=== PATIENT | male | born 1995 | race Caucasian/White ===

== ENCOUNTER 2016-10-17 21:17 | Emergency (ER) | payer BC ==
[~2016-10-17] VITALS: Ht 175.3 cm; Wt 71.7 kg
[2016-10-17 21:17] VITALS: BP 135/76
[2016-10-17] MEDS ORDERED: CEPHALEXIN MONOHYDRATE 500 MG CAPSULE PO ONE ×2 (22:13→22:30)
[2016-10-17] MEDS ORDERED: SULFAMETH/TRIMETH 800/160 MG 1 UDTAB TABLET PO ONE ×2 (22:13→22:30)
== END 2016-10-17 22:25 | disposition home or self-care (01) ==
LOC: ER 21:29
DX: L03.115 Cellulitis of right lower limb (principal); L04.3 Acute lymphadenitis of lower limb; B35.3 Tinea pedis
CPT/HCPCS: A4606; Z7610